=== PATIENT | female | born 2005 | race Caucasian/White ===

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

== ENCOUNTER 2024-02-19 08:53 | Emergency (ER) | payer OTHER, SELFPAY ==
[2024-02-19 09:30] VITALS: BP 126/76; PULSE 128; RESP 20; TEMP 38.1; O2SAT 97; BMI 24.8
--- NOTE | 2024-02-19 10:01 | ED_ITS ---
Discharge Plan Disposition Patient Disposition: Home, Self-Care Condition: Good Prescriptions Prescriptions: New fpopgqijqoajlqy-woijkpzhc-BO [Bromfed DM] 2-30-10 mg/5 mL Syrup 5 ml PO Q6H PRN (Reason: Cough) Qty: 240 0RF ondansetron 4 mg Tablet,Disintegrating 4 mg PO Q8H PRN (Reason: Nausea) Qty: 12 0RF Referrals Follow up/Referrals: Poli Edwards DO [Primary Care Provider] - See instructions Activity Restrictions/Add. Instructions Additional Instructions/Restrictions: Drink plenty of fluids. Take tylenol or ibuprofen for pain or fever. Take the medications as directed. Follow up with your regular doctor. GO TO THE ER FOR ANY WORSENING SYMPTOMS Clinical Impressions Clinical Impression: Acute viral syndrome Stand Alone Forms Stand Alone Forms: Work/School Release Instructions Patient Instructions: DI for Viral Syndrome Print Language Print Language: Puerto Rican Discharge ED Provider: Terry Mayorga [facility] General Stated complaint: fever, pain in neck and head, nausea Mode of Arrival: Ambulatory Source of Information: Patient Limitations: No Limitations Time Seen by Provider: 02/19/24 09:32 Description of Symptoms (Recalled from Triage Doc. by RN): PATIENT C/O FEVER, CHILLS, HEADACHE, NECK PAIN AND NAUSEA SINCE YESTERDAY HEENT Symptoms (Recalled from RN notes): Yes Resp Symptoms (Recalled from RN notes): No Skin Symptoms (Recalled from RN notes): No MS Symptoms (Recalled from RN notes): Yes Functional Status (Recalled from RN notes): WNL Related Data Previous Rx's ?Medication ?Instructions ?Recorded nzymqhpmlywpiot-lvpqzupczioezea-AL 5 ml PO Q6H PRN Cough #240 mL 02/19/24 2 mg-30 mg-10 mg/5 mL oral syrup (Bromfed DM) ondansetron 4 mg disintegrating 4 mg PO Q8H PRN Nausea #12 tabs 02/19/24 tablet Allergies Allergy/AdvReac Type Severity Reaction Status Date / Time No Known Allergies Allergy Verified 10/22/22 11:16 Worker's Comp Is this a Worker's Comp case?: No [facility] Disclaimer: The information contained in this section may have been updated after the patient was seen, as this information can be updated by other users. Medical History (Updated 02/19/24 @ 10:19 by Terry Mayorga APRN) Hypertension Viral upper respiratory infection Acute viral syndrome Enlarged thyroid Otitis media Thyroid disease Depression Anxiety History of gastroesophageal reflux (GERD) Migraine Asthma Sinusitis Social History Smoking Status: Never smoker alcohol intake: never substance use type: denies use current occupational status: student Travel in the last 8 weeks: None household members: family housing: house number of children: 0 ROS Obtained: Yes All systems reviewed & no additional complaints except as documented Constitutional Constitutional: Reports chills and Reports fever(s) Eyes Eyes: Denies eye discharge ENT Ears, Nose, Mouth, and Throat: Reports as per HPI Cardiovascular Cardiovascular: Denies chest pain Respiratory Respiratory: Denies chest congestion and Reports cough Gastrointestinal Gastrointestingal: Reports nausea; Denies abdominal pain, constipation, cramping, diarrhea or vomiting Musculoskeletal Musculoskeletal: Denies arthralgias Integumentary/Breasts Skin/Breast: Denies rash Neurologic Neurologic: Denies paresthesias Physical Exam General General appearance: alert and in no apparent distress Head Head exam: atraumatic, normocephalic and normal inspection Eye Eye exam: Present normal appearance, PERRL and EOMI ENT ENT exam: Present mucous membranes moist and normal external ear exam Expanded ENT Exam TM/Canal exam: Bilateral TM: erythema and bulging Nose exam: Absent sinus tenderness Mouth exam: Present normal external inspection; Absent drooling Teeth exam: Present normal inspection Throat exam: Present tonsillar erythema, tonsillomegaly and tonsillar exudate Neck Neck exam: Present normal inspection, full ROM and trachea midline; Absent tenderness, meningismus or lymphadenopathy Chest Chest inspection: Present normal inspection and symmetric chest wall rise; Absent tenderness Respiratory Respiratory exam: Present normal lung sounds bilaterally; Absent respiratory distress, wheezes, stridor or accessory muscle use Cardiovascular Cardiovascular exam: Present regular rate and normal rhythm; Absent systolic murmur or diastolic murmur Abdominal Exam Abdominal exam: Present soft and normal bowel sounds; Absent distention, tenderness, guarding, rebound or rigidity Extremities Exam Extremities exam: Present normal inspection and normal capillary refill; Absent calf tenderness Back Exam Back exam: Present normal inspection and full ROM; Absent tenderness, CVA tenderness (R) or CVA tenderness (L) Neurological Exam Neurological exam: Present alert, oriented X3 and CN II-XII intact Psychiatric Psychiatric exam: Present normal affect and normal mood Skin Skin exam: Present warm, dry, intact and normal color Medical Decision Making Medical Records Medical records reviewed: No I reviewed the patient's medical records. Rafy Inquiry Pt receiving controlled substance: No Vital Signs: 02/19/24 09:30 Temperature 100.6 F H Temperature Source Oral Pulse Rate [Left Brachial] 128 H Respiratory Rate 20 Blood Pressure [Left Arm] 126/76 Blood Pressure Mean [Left Arm] 92 Blood Pressure Source [Left Arm] Automatic Cuff Blood Pressure Position [Left Arm] Sitting 02 Sat by Pulse Oximetry 97 Oxygen Delivery Method Room Air Lab Data Lab results reviewed: Yes I reviewed the patient's lab results.
[2024-02-19 10:22] VITALS: BP 126/76; PULSE 128; RESP 20; TEMP 38.1; O2SAT 97
[2024-02-19] MEDS: ACETAMINOPHEN 500MG TAB 1000 MG PO (10:30)
[2024-02-19 10:53] LABS: Coronavirus 19, PCR Not Detected (NotDetected); Influenza A, PCR Not Detected (NotDetected); Influenza B, PCR Not Detected (NotDetected)
== END 2024-02-19 10:30 | disposition home or self-care (01) ==
PROVIDERS: Emergency Provider Nurse Practitioner Family; PCP Internal Medicine
DX: R51.9 Headache, unspecified (principal); M54.2 Cervicalgia; R50.9 Fever, unspecified; R11.0 Nausea; B34.9 Viral infection, unspecified
CPT/HCPCS: 87636; 99212; 99214; G0463

== ENCOUNTER 2024-02-20 07:35 | Emergency (ER) | payer OTHER, SELFPAY ==
[2024-02-20 07:46] VITALS: BP 136/81; PULSE 143; RESP 16; TEMP 39.1; O2SAT 99; BMI 24.7
[2024-02-20] MEDS: KETOROLAC 30MG/ML VIAL 15 MG IV (08:11)
[2024-02-20] MEDS: LACTATED RINGERS 1000ML 1,000 ML 999 ML IV (08:12)
[2024-02-20] MEDS: ONDANSETRON 4MG/2ML VIAL 4 MG IV (08:12)
[2024-02-20] MEDS: ACETAMINOPHEN 500MG TAB 1000 MG PO (08:12)
[2024-02-20 08:13] LABS: Basophils % 0.3 % (0.1-2.0); Eosinophils # 0.1 K/mm3 (0.0-0.4); Eosinophils % 1.2 % (0.1-12.0); Hematocrit 38.5 % (37.0-47.0); Hemoglobin 13.1 g/dL (12.2-16.2); Lymphocytes # 0.8 K/mm3 (0.7-4.5); Lymphocytes % 7.4 % (10-50); MANUAL DIFFERENTIAL MANUAL DIFFERENTIAL (MANUAL DIFF); Mean Corpuscular Hemoglobin 31.8 pg (27.0-31.2); Mean Corpuscular Volume 93.6 fl (81-99); Monocytes # 0.4 K/mm3 (0.1-1.0); Monocytes % 3.2 % (1.7-9.3); Neutrophils # 9.8 K/mm3 (1.8-7.8); Neutrophils % 87.9 % (37.0-80.0); Platelet Count 322 K/mm3 (142-424); Red Blood Count 4.11 M/mm3 (4.20-5.40); Red Cell Distribution Width 13.2 % (11.5-17.5); White Blood Count 11.1 K/mm3 (4.5-13.0)
--- NOTE | 2024-02-20 08:13 | HMH.EDGENADL ---
Discharge Plan Disposition Patient Disposition: Home, Self-Care Prescriptions Prescriptions: No Action mjeyejujdyxhqzg-upbhtsfdh-PZ [Bromfed DM] 2-30-10 mg/5 mL Syrup 5 ml PO Q6H PRN (Reason: Cough) Qty: 240 0RF ondansetron 4 mg Tablet,Disintegrating 4 mg PO Q8H PRN (Reason: Nausea) Qty: 12 0RF Referrals Follow up/Referrals: Poli Edwards DO [Primary Care Provider] - See instructions Activity Restrictions/Add. Instructions Additional Instructions/Restrictions: Call your family doctor to establish care for this visit to the emergency department and schedule follow-up within 48 hours to ensure improvement. If you have any worsening of your condition or any other concerning signs or symptoms, return to the emergency department or your primary care doctor for further evaluation. Take Tylenol 1000 mg every 6 hours (4 times daily) and ibuprofen 400 mg every 6 hours (4 times daily) as needed with food and water to prevent GI upset and kidney damage. I will contact you with diarrhea panel results with something that needs to be treated. Clinical Impressions Clinical Impression: Vomiting and diarrhea, Fever Stand Alone Forms Stand Alone Forms: Work/School Release Print Language Print Language: Faroese Discharge ED Provider: Parker Lares General Adult HPI General Chief complaint: Fever Stated complaint: fever 104 Time Seen by Provider: 02/20/24 07:44 Mode of Arrival: Ambulatory Source of Information: Patient Limitations: No Limitations Description of Symptoms (Recalled from ER Triage Doc. by RN): Patient c/o fever, nausea and diarrhea. Pt was seen in the [facility] yesterday and given bromfed and zofran. History of Present Illness HPI narrative: Please note that above description of symptoms, in this electronic medical record under categorization of recalled from ER triage doctor by RN are reflective of an initial nursing assessment, however, is not reflective of my full history and physical exam that was personally taken and clarified. Consequentially, this preceding description of symptoms, which may include the patient's categorized chief complaint in the EMR, do not reflect my personal clinical impression, and the ultimate description of history of present illness and patient stated complaints should be deferred to this section of the note. Unless stated otherwise or congruent with this section of the note, additional signs, symptoms, or incongruence should be interpreted as inaccurate with my clinical impression. Related Data Previous Rx's ?Medication ?Instructions ?Recorded zjcdceklbcialij-ekezrmguvixkuam-QU 5 ml PO Q6H PRN Cough #240 mL 02/19/24 2 mg-30 mg-10 mg/5 mL oral syrup (Bromfed DM) ondansetron 4 mg disintegrating 4 mg PO Q8H PRN Nausea #12 tabs 02/19/24 tablet Allergies Allergy/AdvReac Type Severity Reaction Status Date / Time No Known Allergies Allergy Verified 02/20/24 07:51 PFSH [facility] Disclaimer: The information contained in this section may have been updated after the patient was seen, as this information can be updated by other users. Medical History (Updated 02/20/24 @ 09:32 by Parker Lares MD) Hypertension Viral upper respiratory infection Acute viral syndrome Enlarged thyroid Otitis media Thyroid disease Depression Anxiety History of gastroesophageal reflux (GERD) Migraine Asthma Sinusitis Social History Smoking Status: Never smoker alcohol intake: never substance use type: denies use current occupational status: student Travel in the last 8 weeks: None household members: family housing: house number of children: 0 ROS Obtained: Yes All systems reviewed & no additional complaints except as documented Physical Exam General General appearance: alert and anxious Head Head exam: atraumatic and normocephalic Eye Eye exam: Present normal appearance, PERRL and EOMI Neck Neck exam: Present normal inspection, full ROM and trachea midline Respiratory Respiratory exam: Present normal lung sounds bilaterally; Absent respiratory distress, wheezes, stridor, accessory muscle use or prolonged expiratory phase Cardiovascular Cardiovascular exam: Present normal rhythm, tachycardia, normal heart sounds and other (Pulses equal symmetric in upper and lower extremities) Abdominal Exam Abdominal exam: Present soft; Absent distention, tenderness, guarding, rebound or pulsatile mass Extremities Exam Extremities exam: Absent edema Neurological Exam Neurological exam: Present alert, oriented X3 and CN II-XII intact; Absent motor sensory deficit Skin Skin exam: Present warm and dry; Absent diaphoresis or erythema Medical Decision Making Medical Records Medical records reviewed: Yes I reviewed the patient's medical records. Rafy Inquiry Pt receiving controlled substance: No Rafy was queried for this patient: No Vital Signs: 02/20/24 07:46 02/20/24 08:08 02/20/24 09:43 Temperature 102.3 F H 100.0 F H Temperature Source Oral Oral Pulse Rate 111 H Pulse Rate [Right Brachial] 143 H Respiratory Rate 16 16 Blood Pressure 110/63 Blood Pressure [Right Arm] 136/81 Blood Pressure Mean [Right Arm] 99 02 Sat by Pulse Oximetry 99 Oxygen Delivery Method Room Air Lab Data Lab Results 02/20/24 07:58: WBC 11.1, RBC 4.11 L, Hgb 13.1, Hct 38.5, MCV 93.6, MCH 31.8 H, MCHC 34.0, RDW 13.2, Plt Count 322, MPV 7.0 L, Neut % (Auto) 87.9 H, Lymph % (Auto) 7.4 L, [place] % (Auto) 3.2, Eos % (Auto) 1.2, Baso % (Auto) 0.3, Neut # (Auto) 9.8 H, Lymph # (Auto) 0.8, [place] # (Auto) 0.4, Eos # (Auto) 0.1, Baso # (Auto) 0.0, Total Counted 100, Neutrophils % (Manual) 76, Lymphocytes % (Manual) 18, Monocytes % (Manual) 6, Platelet Estimate Normal, RBC Morphology Normal, Sodium 134 L, Potassium 3.4 L, Chloride 104, Carbon Dioxide 22, Anion Gap 11.4, BUN 9, Creatinine 0.80, Estimated Creat Clear 117, Estimated GFR 92, Est GFR ( Amer) 112, Glucose 106 H, Calcium 9.0, Total Bilirubin 0.4, AST 34, ALT 19, Alkaline Phosphatase 64, Total Protein 7.4, Albumin 4.4, Globulin 3.0, Albumin/Globulin Ratio 1.5, Lipase 52, HCG, Quant < 2 02/20/24 08:04: Stl Aeromonas (PCR) Not detected, Stl C. cayetanensis PCR Not detected, Stool Rotavirus (PCR) Not detected, Stl Adenov F 40/41 PCR Not detected, Stool Astrovirus (PCR) Not detected, Stool Campylobacter PCR Detected A, Stl C.difficile Tox PCR Not detected, Stool Cryptosporidium PCR Not detected, Stl E.coli Shiga Tox PCR Not detected, Stool E coli O157 PCR Not detected, Stl Enterotoxigenic E PCR Not detected, Stool EPEC (PCR) Not detected, Stool EAEC (PCR) Not detected, Stl E. histolytica PCR Not detected, Stool Giardia Lamblia PCR Not detected, Stool Salmonella PCR Not detected, Stool Sapovirus (PCR) Not detected, Stl P. shigelloides PCR Not detected, Stl Shigella/EIEC PCR Not detected, St Y.enterocolitica PCR Not detected, Stool Vibrio (PCR) Not detected, Stl Vibrio cholerae PCR Not detected, Stl Norovirus GI/GII PCR Not detected 02/20/24 08:22: Urine Color Yellow, Urine Appearance Sl cloudy, Urine pH 6.0, Ur Specific [place] >= 1.030, Urine Protein 1+ A, Urine Glucose (UA) Negative, Urine Ketones 3+, Urine Blood 1+ A, Urine Nitrate Negative, Urine Bilirubin Negative, Urine Urobilinogen 0.2, Ur Leukocyte Esterase Trace, Urine RBC 3-5, Urine WBC 3-5, Ur Squamous Epith Cells 10-20, Urine Bacteria 2+ 02/20/24 07:58 02/20/24 07:58 Orders (Tests/Meds): ED MEDICATIONS Discontinued Medications Generic Name Dose Route Start Last Admin Trade Name Milad PRN Reason Stop Dose Admin Acetaminophen 1,000 mg 02/20/24 08:04 02/20/24 08:12 Acetaminophen 500mg Tab PO 02/20/24 08:05 1,000 mg ONCE ONE Administration Lactated Ringer's 1,000 mls @ 999 mls/hr 02/20/24 08:04 02/20/24 08:12 Lactated Ringer's 1000 Ml Bag IV 02/20/24 09:04 999 mls/hr .Q1H1M ONE Administration Ketorolac Tromethamine 15 mg 02/20/24 08:04 02/20/24 08:11 Ketorolac 30mg/Ml Vial IV 02/20/24 08:05 15 mg ONCE ONE Administration Ondansetron HCl 4 mg 02/20/24 08:04 02/20/24 08:12 Ondansetron 4mg/2ml Vial IV 02/20/24 08:05 4 mg ONCE ONE Administration ORDERS Category Date Time Status CBC w/Auto Diff [Complete Blood Count Auto Diff] Stat Lab 02/20/24 07:58 Completed CMP [Comprehensive Metabolic Panel] Stat Lab 02/20/24 07:58 Completed Diarrhea 6-11 Panel, Cdiff PCR Stat Lab 02/20/24 08:04 Completed HCG,Quantitative Stat Lab 02/20/24 07:58 Completed Lipase Stat Lab 02/20/24 07:58 Completed UA [Urinalysis and Microscopic] Stat Lab 02/20/24 08:22 Completed Urine Culture Stat Micro 02/20/24 08:22 Received Medical Decision Narrative: 18-year-old female no relevant medical history presenting with nausea and diarrhea. This been going on for about 2 to 3 days at this point. Started having fevers 2 days ago. They are responsive to Tylenol and Motrin and improve patient's appetite/nausea. She states that when meds wear off, her appetite goes away and she feels nauseated again. States that she is having diarrhea that is watery, nonbloody every 30 to 45 minutes for the past couple of days as well. 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 No known C. difficile contacts, but still high risk. Intermittent dry cough for the last 24 hours, but patient does not feel this is related. No vaginal discharge or bleeding, urinary symptoms, abdominal pain, vomiting, or any other concerns. She has tried Zofran, this helped with her appetite as well, still has some at home. History was obtained via conversation with patient. On arrival, patient hemodynamically stable, alert, oriented x4, appropriate, GCS 15, moving all extremities spontaneously, pupils equal and reactive to light. Full physical exam performed and significant for very well-appearing female who is in no acute distress. Initially febrile and tachycardic 140 bpm, erythematous face, but no acute distress. Cardiac exam without murmurs gallops or rubs. Lungs are clear to auscultation anteriorly and posteriorly. Patient's abdomen is soft, nondistended, nontender to deep palpation. Differential includes viral gastroenteritis, bacterial gastroenteritis, , pancreatitis, UTI, among others. Patient placed on continuous cardiac monitoring and continuous pulse ox with initial blood pressure 136/81, heart rate 143, saturation 99% on room air. Patient initially febrile 102.3 ?F. Patient was given fluids, Toradol, acetaminophen, Zofran for symptomatic management and correction of underlying abnormalities. Workup independently interpreted and significant for no leukocytosis with white count 11.1 mild neutrophilia 88%. Patient's chemistry nonactionable. hCG negative. Lipase negative. Urinalysis with contaminated sample and little concern for urinary tract infection. On reevaluation, patient states that she feeling much better, now that she has defervesced. Able to tolerate p.o. intake and reexamination remains unconcerning. Given patient presentation, workup, history, this most likely represents viral versus bacterial gastroenteritis. Because I do not have great reason for patient's symptoms and stool panel still pending, I do feel patient is stable for home-going given completely benign abdominal exam, but I told her I would contact her with results of stool panel. Patient feels comfortable going home prior to this resulting. Because patient at baseline without signs or symptoms of clinical decompensation, deemed appropriate for discharge. Results were relayed to patient who voiced understanding and were agreeable to outpatient management and follow up. I discussed my clinical impression with patient and answered all questions. At this time, the evidence for any other entities in the differential is insufficient to warrant any further testing or ED observation. This was explained as well. Advisory was given that persistent or worsening symptoms require further evaluation. I confirmed the understanding of this discussion. I had our team contact patient to discuss results of stool panel results being Campylobacter and not necessitating treatment. Lot Porter disclaimer Much of this encounter note is an electronic correctional program specialist spoken language to printed text. Electronic correctional program specialist of the spoken language may permit errors. Although I have reviewed the note, some errors may still exist. Critical Care Critical Care Time Critical Care Time: No
--- NOTE | 2024-02-20 08:19 | PC.NURSE ---
Family at BS
[2024-02-20 08:22] LABS: Potassium 3.4 mmoL/L (3.5-5.1)
[2024-02-20 08:25] LABS: Alanine Aminotransferase 19 U/L (12-78); Albumin Level 4.4 g/dl (3.5-5.0); Albumin/Globulin Ratio 1.5 (1.1-1.8); Alkaline Phosphatase 64 U/L (38-126); Anion Gap 11.4 mEq/L (5-15); Aspartate Amino Transferase 34 U/L (14-36); Bilirubin,Total 0.4 mg/dl (0.2-1.3); Blood Urea Nitrogen 9 mg/dl (7-17); Carbon Dioxide 22 mmol/L (22.0-30.0); Chloride 104 mmol/L (98-107); Creatinine Clearance Estimated 117 mL/min (50-200); Estimated Glomerular Filt Rate 92 ml/min (>60); GFR (African American) 112 ML/MIN (>60); Glucose 106 mg/dl (74-100); Lipase 52 U/L (23-300); Sodium 134 mmol/L (136-145); Total Protein,Serum 7.4 g/dl (6.3-8.2)
[2024-02-20 08:25] LABS: Microscopic, Urine URINE MICROSCOPIC (MICROSCOPIC)
[2024-02-20 08:28] LABS: Appearance,Urine SL CLOUDY (Clear); Blood, Urine 1+ (Negative); Color,Urine YELLOW (Yellow); Glucose,Urine (UA) Negative (Negative); Ketones,Urine 3+ (Negative); Leukocyte Esterase,Urine TRACE (Negative); Nitrate,Urine Negative (Negative); Protein,Urine 1+ (Negative); Specific Gravity, Urine >= 1.030 (1.005-1.030); Urobilinogen,Urine 0.2 EU/dl (0.2)
[2024-02-20 08:42] LABS: HCG,Quantitative < 2 mIU/ml (0-5.42)
[2024-02-20 08:54] LABS: Bilirubin,Urine Negative (Negative)
[2024-02-20 08:55] LABS: Bacteria,Urine 2+ /lpf
[2024-02-20 09:17] LABS: Adenovirus F 40/41, stool Not Detected (NotDetected); Astrovirus Not Detected (NotDetected); Clostridium Difficile A/B, PCR Not Detected (NotDetected); Cryptosporidium Not Detected (NotDetected); Cyclospora Cayetanesis Not Detected (NotDetected); Entamoeba histolytica Not Detected (NotDetected); Enteroaggregative E coli Not Detected (NotDetected); Enteropathogenic E coli Not Detected (NotDetected); Enterotoxigenic E coli Not Detected (NotDetected); Giardia lamblia Not Detected (NotDetected); Norovirus Not Detected (NotDetected); Plesimonas Shigalloides, PCR Not Detected (NotDetected); Rotavirus A Not Detected (NotDetected); Salmonella, PCR Not Detected (NotDetected); Sapovirus Not Detected (NotDetected); Shiga-like toxin E coli Not Detected (NotDetected); Shigella Enterovasive E coli Not Detected (NotDetected); Vibrio Cholerae Not Detected (NotDetected); Vibrio, PCR Not Detected (NotDetected); Yersinia Entercolitica, PCR Not Detected (NotDetected)
[2024-02-20 09:43] VITALS: BP 110/63; PULSE 111; RESP 16; TEMP 37.8; O2SAT 99
[2024-02-20 10:46] LABS: Lymphocytes % 18 % (10-50); Monocytes % 6 % (2-9); Neutrophils % 76 % (42-76); Total Cells Counted 100
[2024-02-20 10:48] LABS: RBC Morphology Normal
[2024-02-20 10:49] LABS: Platelet Estimate Normal
[2024-02-20 12:12] LABS: Campylobacter Detected (NotDetected)
--- NOTE | 2024-02-20 17:38 | PC.NURSE ---
pt updated on her diarrhea panel and management of results
--- NOTE | 2024-02-21 10:15 | PC.NURSE ---
STOOL PANEL DISCUSSED WITH DR TAVERA, NO NEW ORDERS
--- NOTE | 2024-02-23 09:58 | PC.NURSE ---
ua discussed with dr talbot, no new orders
== END 2024-02-20 09:46 | disposition home or self-care (01) ==
PROVIDERS: Emergency Provider Emergency Medicine; PCP Internal Medicine
DX: A04.5 Campylobacter enteritis (principal); N39.0 Urinary tract infection, site not specified; B96.29 Other Escherichia coli [E. coli] as the cause of diseases classified elsewhere; R50.9 Fever, unspecified; R11.0 Nausea; R19.7 Diarrhea, unspecified
CPT/HCPCS: 80053; 81001; 83690; 84702; 85007; 85025; 85027; 87086; 87088; 87186; 87493; 87506; 96361; 96374; 96375; 99284; J1885; J2405; J7120

== ENCOUNTER 2024-11-21 09:19 | Outpatient (CLI) | payer OTHER, SELFPAY ==
[2024-11-23 22:23] LABS: QuantiFERON-TB Gold Plus Negative (Negative)
== END 2024-11-21 23:59 | disposition home or self-care (01) ==
PROVIDERS: PCP Family Medicine; Visit Provider Family Medicine
DX: A15.0 Tuberculosis of lung (principal)
CPT/HCPCS: 36415; 86480